=== PATIENT | female | born 1965 | race Caucasian/White ===

== ENCOUNTER 2023-10-10 06:53 | Outpatient (OUT) | payer BC, SELFPAY ==
--- NOTE | 2023-10-10 06:59 | MM_ITS ---
Patient Name: ESME LARSEN MR#: [id number] : 1965 Exam Date: 10/10/2023 Ordering Doctor: Non-Staff Physician RADIOLOGY REPORT PROCEDURE: MM TOMOSYNTHESIS SCREENING BI COMPARISON: MG MAMM SCREEN 3D ABELARDO CAD, 10/06/2022. MG MAMM SCREEN 3D ABELARDO CAD, 08/26/2021. INDICATIONS: Screening Calculator Name NCI Breast Cancer Risk Assessment Tool 5 Year Breast Cancer Risk 1.40% Lifetime Breast Cancer Risk 8.70% Personal Breast Cancer No Personal Ovarian Cancer No Treatments None Family Cancers Mother with lung cancer at age 72; Father with liver/colon cancer at age 56. LOCATION: [facility] BREAST COMPOSITION: The breasts are extremely dense, which lowers the sensitivity of mammography. FINDINGS: DIAGNOSTIC CATEGORY 1--NEGATIVE. NO CHANGE FROM COMPARISON ASSESSMENT. Scattered benign-appearing lymph nodes are present. RIGHT BREAST: No significant suspicious finding. LEFT BREAST: No significant suspicious finding. RECOMMENDATIONS: ROUTINE MAMMOGRAM AND CLINICAL EVALUATION IN 12 MONTHS. PLEASE NOTE: A NORMAL MAMMOGRAM DOES NOT EXCLUDE THE POSSIBILITY OF BREAST CANCER. A CLINICALLY SUSPICIOUS PALPABLE LUMP SHOULD BE BIOPSIED. Dictated by: Bryan Hebert MD on 10/10/2023 at 07:49 Approved by: Bryan Hebert MD on 10/10/2023 at 07:50
== END 2023-10-10 06:54 | disposition home or self-care (01) ==
LOC: MAMMO 06:54
PROVIDERS: PCP Family Medicine
DX: Z12.31 Encounter for screening mammogram for malignant neoplasm of breast (principal); Z80.1 Family history of malignant neoplasm of trachea, bronchus and lung; Z80.0 Family history of malignant neoplasm of digestive organs
CPT/HCPCS: 77063; 77067

== ENCOUNTER 2024-10-22 07:00 | Outpatient (OUT) | payer BC, SELFPAY ==
--- NOTE | 2024-10-22 07:02 | MM_ITS ---
Patient Name: ESME LARSEN MR#: [id number] : 1965 Exam Date: 10/22/2024 Ordering Doctor: MRS. KENYON COX NP RADIOLOGY REPORT PROCEDURE: MM TOMOSYNTHESIS SCREENING BI COMPARISON: MM TOMOSYNTHESIS SCREENING BI, 10/10/2023. MG MAMM SCREEN 3D ABELARDO CAD, 10/06/2022. MG MAMM SCREEN 3D ABELARDO CAD, 08/26/2021. MG MAMM ABELARDO SCRN W CAD DIG, 03/12/2008. INDICATIONS: screening for malignant neoplasm of breast Calculator Name [facility] Breast Cancer Risk Assessment Tool 5 Year Breast Cancer Risk 1.50% Lifetime Breast Cancer Risk 8.50% Personal Breast Cancer No Personal Ovarian Cancer No Treatments None Family Cancers Mother with lung cancer at age 72; Father with liver/colon cancer at age 56. LOCATION: [facility] BREAST COMPOSITION: The breasts are heterogeneously dense,which may obscure small masses. FINDINGS: RIGHT BREAST: No significant suspicious finding. LEFT BREAST: No significant suspicious finding. There is a benign-appearing calcification on the left. There is a similar focal asymmetry appeared DIAGNOSTIC CATEGORY 2--BENIGN FINDING: RECOMMENDATIONS: ROUTINE MAMMOGRAM AND CLINICAL EVALUATION IN 12 MONTHS. PLEASE NOTE: A NORMAL MAMMOGRAM DOES NOT EXCLUDE THE POSSIBILITY OF BREAST CANCER. A CLINICALLY SUSPICIOUS PALPABLE LUMP SHOULD BE BIOPSIED. Dictated by: Moreno Spence MD on 10/22/2024 at 08:09 Approved by: Moreno Spence MD on 10/22/2024 at 08:26
--- OUTSIDE RECORDS SUMMARY | 2024-10-22 07:02 | XMS_ITS | Clinical Summary ---
Author Organization [facility] Address [address] [place] [address] Care Team Providers Care Bull Driver Name Role Phone Artur Hdz DO Primary Care Provider [phone] Social History Tobacco Use Types Packs/Day Years Used Date Smoking Tobacco: Never Assessed Comments Unknown Sex and Gender Information Value Date Recorded Sex Assigned at Not on file Legal Sex Female 9:02 AM EDT Gender Identity Not on file Sexual Orientation Not on file Plan of Treatment Not on file Insurance [place] Care Teams Bull Driver Relationship Specialty Start Date End Date Artur Hdz DO [address] [place] [address] PCP - General Family Medicine 01/24/23
--- OUTSIDE RECORDS SUMMARY | 2024-10-22 07:02 | XMS_ITS | Clinical Summary ---
Author Organization [facility] Address [address] [place] [address] Phone Care Team Providers Care Latin Dance Instructor Name Role Phone Unavailable Primary Care Provider Unavailabl e Social History Tobacco Use Types Packs/Day Years Used Date Smoking Tobacco: Never Assessed Comments Unknown Sex and Gender Information Value Date Recorded Sex Assigned at Not on file Legal Sex Female 5:22 AM EST Gender Identity Not on file Sexual Orientation Not on file Plan of Treatment Not on file
--- OUTSIDE RECORDS SUMMARY | 2024-10-22 07:02 | XMS_ITS | Encounter Summary ---
Author Organization [facility] Address [address] [place] [address] Care Team Providers Care Laminating Machine Tender Name Role Phone Unavailable Primary Care Provider Unavailabl e Encounter Details Date Type Department Care Team (Late st Contact Info) Description 12/03/2023 Orders Only [facility] [address] [phone] Jennifer Griffin NP [address] [place] [address] Social History Tobacco Use Types Packs/Day Years Used Date Smoking Tobacco: Never Assessed Comments Unknown Sex and Gender Information Value Date Recorded Sex Assigned at Not on file Legal Sex Female 6:39 PM EDT Gender Identity Not on file Sexual Orientation Not on file documented as of this encounter Plan of Treatment Not on file documented as of this encounter Procedures Procedure Name Priority Date/Time Associated Diagnosis Comments MAMMO 3D,BILATERAL SCREENING MAMMOGRAM WITH TOMOSY Routine 10/10/2023 2:41 PM EDT documented in this encounter Results * MAMMO 3D,BILATERAL SCREENING MAMMOGRAM WITH TOMOSY (10/10/2023 2:41 PM EDT) Anatomical Region Laterality Modality Radiographic Laura ging Jennifer Griffin NP IMG XR PROCEDURES Final R esult documented in this encounter Visit Diagnoses Not on filedocumented in this encounter
--- OUTSIDE RECORDS SUMMARY | 2024-10-22 07:09 | XMS_ITS | CCD ---
Author Organization [facility] Care Team Providers Care Labor And Delivery Nurse Name Role Phone Bianca Villalobos Primary Care Physician KENYON COX Admitting Unavailable KENYON COX Attending Unavailable KADE, DR ANTONETTE Kumar Primary Care Unavailable HERNAN, DR DELFINO Basilio Consulting Unavailable KENYON COX Consulting Unavailable CHELSIE, BIANCA Basilio Admitting Unavailable KLMEERAK, BIANCA Basilio Attending Unavailable CHELSIE, BIANCA Basilio Attending Unavailable CHELSIE, BIANCA Basilio Attending Unavailable CHELSIE, BIANCA Basilio Referring Unavailable AVRILK, BIANCA Basilio Admitting Unavailable CHELSIE, BIANCA Basilio Attending Unavailable KLDESHAUN, BIANCA Basilio Referring Unavailable KLONK, BIANCA Basilio Admitting Unavailable MD Darion GARCÍA Consulting Unavailable BIANCA VILLALOBOS Attending Unavailable Darion GARCÍA Consulting Unavailable Darion GARCÍA Consulting Unavailable Allergies Allergy Classification Reported Allergen(s) Allergy Type Date of Onset Reaction(s) Facility (1 source) No Known Medication Allergies; Translations: [No Known Medication Allergies] Propensity to adverse reactions (disorder) [facility] Repository Medications Current Medications Medication Drug Class(es) Dates Sig (Normalized) Sig (Original) Centrum Women's oral tablet (4 sources) Start: 04-10-2019 Centrum Women's oral tablet 1 tab(s), Refill(s) 0 Start Date: 04/10/19 Status: Ordered Problems Problem Classification Problem Date Documented Date Episodic/Chronic Allergic reactions (4 sources) Contact dermatitis 12-07-2019 Episodic Cardiac dysrhythmias (4 sources) Tachyarrhythmia ; Translations: [Tachycardia, unspecified] Onset: 09-28-2022 Episodic Nonspecific chest pain (4 sources) Chest pain; Translations: [Other chest pain] Onset: 09-28-2022 Episodic Other screening for suspected conditions (not mental disorders or infectious disease) (4 sources) Encounter for screening mammogram for malignant neoplasm of breast; Translations: [ENC SCR MAMMO MALIG NEOPLASM BREAST] Onset: 10-06-2022 Episodic Residual codes; unclassified (1 source) Family history of malignant neoplasm of trachea, bronchus and lung; Translations: [FAM HX MALNAFISA NEOPLSM TRACH BRON LNG] Onset: 10-08-2022 Episodic Residual codes; unclassified (1 source) Family history of malignant neoplasm of digestive organs; Translations: [FAM HX MALIG NEOPLASM DIGESTIV ORGN] Onset: 10-08-2022 Episodic Unclassified (4 sources) Patient encounter status 09-15-2022 Results Test Name Value Interpretation Reference Range Facility Auth for Release of Medical Recordson 01-24-2023 Auth for Release of Medical Records [id number]#[id number]:127 Normal [facility] Holter Monitoron 12-11-2022 Holter Monitor [id number]#1.00CD:127 Normal [facility] Physician Referralon 023 Physician Referral [id number]#1.00CD:127 Normal [facility] Reminderson 11-23-2022 Reminders --- From: Radha Jiménez DO To: [facility] - Clinical; Sent: 11/21/2022 19:40:55 EDT Show up: 11/21/2022 19:41:00 EDT Subject: Ambulatory Reminder Due Date/Time: 11/22/2022 19:40:00 EDT have patient schedule appointment echo ordered slightly off think might have her see cardiology Results: Date Result Type Result Name 11/21/2022 15:45 RAD Echo Transthoracic Complete --- From: Tami Mixon ([facility] - Clinical) To: Radha Jiménez DO; Sent: 11/23/2022 09:18:43 EDT Show up: 11/23/2022 09:18:00 EDT Subject: RE: Ambulatory Reminder Dr. Jiménez, I could attempt to schedule this pt on your schedule for December 12, which is the Sunday in November. Is this too far out? There are no current open appointments showing in [employer] without things being set in stone currently. --- From: Radha Jiménez DO To: [facility] - Clinical; Sent: 11/23/2022 13:33:02 EDT Show up: 11/23/2022 13:32:00 EDT Subject: RE: Ambulatory Reminder yes that be fine it is stable mild. Noted. Please see other message regarding this. Thank you! [facility] Consent for Treatmenton Consent for Treatment [id number]:127 Normal [facility] Consent for Treatmenton Consent for Treatment [id number]#[id number]:127 Normal [facility] Family Medicine Office/Clini c Noteon 10-13-2022 Family Medicine Office/Clinic Note Chief Complaint chest tightness HPI Staff Cass is a 57 yo female who presents today to discuss getting a referral to see Cardio. Claims at times she notices tightness and heart racing when she lays down. Denies pain and SOB. States she does not feel anything during the day, just when laying down. Has noticed this in the last 3-4 weeks. Also had labs done yesterday she wants to review. History of Present Illness Cass Ramon presents today for an evaluation. Cass Ramon explains that she had blood work done yesterday for her wellness visit. Her glucose was 89 mg/dL. Her kidney function and electrolytes were good, and her LDL was 133 mg/dL. Cass explains that she has been experiencing intermittent fluttering in her chest when she lays down at night, which has been ongoing for 3 to 4 weeks. She explains that it is not every night, but it varies, and it wakes her up at night. She describes it as an anxious feeling. Sometimes it feels like there is pressure , but she denies pain. She walks every day. She denies shortness of breath before, during, or after, and it occurs in the evening. She tries not to sleep on her side with her heart. If she does, she makes sure her shoulders are more straight. She denies edema in her legs. She drinks coffee. She used to drink 1 cup at 8:00 PM or 1 cup after dinner. She has had no issues sleeping her whole life. If she exercises that day, she sleeps better. Review of Systems ROS - Clinical Support GI Symptoms: None Cardiopulmonary Symptoms: Chest pain/pressure at rest, Palpitations General Symptoms: None Genitourinary Symptoms: None Neuromuscular Symptoms: None Pain Symptoms: No Skin Symptoms: None PHQ Score Initial Depression Screen Score: 0 see above HPI Physical Exam Vitals & Measurements T: 36.4 ?C(Temporal Artery) HR: 74(Peripheral) BP: 118/68 SpO2: 98% HT: 69 in HT: 175 cm WT: 101 kg WT: 222.2 lb BMI: 32.98 General: Well developed, _in no acute distress Lungs: Normal respiratory effort and clear to auscultation Cardio: Regular rate and rhythm, normal S1 and S2, no murmur, no rub Extremity: No clubbing, cyanosis, edema, or deformity, with normal ROM in both upper and lower bilateral extremities Neurologic: Grossly normal Mental Status: Alert and oriented x3. Normal mood and affect Assessment/Plan 1. Tachycardia (R00.0: Tachycardia, unspecified) I will order an echocardiogram and a Holter monitor. ER for acute changes in condition/chest pain. 2. Chest pressure (R07.89: Other chest pain) see above- discussed possible anxiety component, rule out cardiac. BMI 32.0-32.9,adult (Z68.32: Body mass index [BMI] 32.0-32.9, adult) Nonsmoker (Z78.9: Other specified health status) Obesity due to excess calories (E66.09: Other obesity due to excess calories) not dictated by provider Documentation services were performed after patient or guardian consented to allow [facility] [employer] to record this visit. BRITTNEE renewals specialist and provider reviewed before signing. BRITTNEE: Annalisa Tre Follow-up No qualifying data available Problem List/Past Medical History Ongoing Chest pressure Contact dermatitis Tachycardia Wellness examination Historical No qualifying data Procedure/Surgical History Colonoscopy (09/14/2017), Basal cell carcinoma, Dental. Medications Centrum Women's oral tablet, 1 tab(s) Allergies No Known Medication Allergies Social History Alcohol - Denies Alcohol Use, 04/10/2019 Household alcohol concerns: No., 09/28/2022 Substance Abuse - Denies Substance Abuse, 04/10/2019 Household substance abuse concerns: No., 09/28/2022 Tobacco - Denies Tobacco Use, 04/10/2019 Never (less than 100 in lifetime) Tobacco Use:. Never Smokeless Tobacco Use:. Household tobacco concerns: No., 09/28/2022 Family History Primary malignant neoplasm of colon: Father. Primary malignant neoplasm of female breast: Mother. Immunizations Vaccine Date Status Comments SARS-CoV-2 (COVID-19) mRNA BNT-162b2 vax 10/02/2020 Given Prophylaxis SARS-CoV-2 (COVID-19) mRNA BNT-162b2 vax 09/11/2020 Given Prophylaxis [facility] Comment on above: Result Comment: Elec tronically Signed By: Bianca Villalobos NP\.br\Date and Time Signed: 10/13/22 14:20 EDT\.br\Electronically Co-Signed By: Annalisa Toledo\.br\Date and Time Co-Signed: 09/28/22 12:55 EDT MG MAMM SCREEN 3D ABELARDO CADon 10-06-2022 MG MAMM SCREEN 3D ABELARDO CAD Patient: CASS RAMON Exam Date: 10/06/2022 : 1965 Gender:F Ordering : MRS. KENYON COX PHOTOLITHOGRAPHER Admission #: [id number] Family : Order #: [id number] CLICK HERE TO VIEW EXAM RADIOLOGY REPORT PROCEDURE: MAMMOGRAM SCREENING 3D BILATERAL CAD COMPARISON: MG MAMM LT DIAG FU, 08/27/2019. MG MAMM SCREEN ABELARDO W CAD, 07/10/2019. MG MAMM ABELARDO SCRN W CAD DIG, 03/12/2008. MG MAMM SCREEN 3D ABELARDO CAD, 08/26/2021. INDICATIONS: Screening mammography Calculator Name NCI Breast Cancer Risk Assessment Tool 5 Year Breast Cancer Risk 1.40% Lifetime Breast Cancer Risk 8.90% Personal Breast Cancer No Personal Ovarian Cancer No Treatments None Family Cancers Mother with lung cancer at age 72; Father with liver/colon cancer at age 56. LOCATION: [facility] BREAST COMPOSITION: Extremely dense, which lowers the sensitivity of mammography. FINDINGS: DIAGNOSTIC CATEGORY 1--NEGATIVE. RIGHT BREAST: No significant suspicious finding. No significant change has occurred. LEFT BREAST: No significant suspicious finding. No significant change has occurred. RECOMMENDATIONS: ROUTINE MAMMOGRAM AND CLINICAL EVALUATION IN 12 MONTHS. PLEASE NOTE: A NORMAL MAMMOGRAM DOES NOT EXCLUDE THE POSSIBILITY OF BREAST CANCER. A CLINICALLY SUSPICIOUS PALPABLE LUMP SHOULD BE BIOPSIED. Dictated by: Delfino Fox M.D. on 10/06/2022 at 09:00 Approved by: Delfino Fox M.D. on 10/06/2022 at 09:04 Normal [facility] Coding Summary.on 10-02-2022 Coding Summary. CD:[id number] 0bWw+PGhlYWQ+PE1FV CTkK66zsVRdgB9iC8Z MTElOSywgQVBQTElOS xWehqWeGL7aySJeJYC u IC8+QD2cOLCiXtbxxL Iiy8X0pIT9K39hqs1f KCjlqDC2DFRrHzSkjd aql5xbiDl3HAvxOzcb OyBt WNEppI22MBP1eO49Vq 32qLQpaXWba2ucfSx1 EvPjKYOlZZT1kQchCW rcm9CpKWNfJ48fnBCa c2U6 IGNvbGxhcHNlOyBlbX P9lM5zCKxochiwz6zm owlcWku6rb26wZCds8 U2sZO8T7XkwyY3ZRIk bGQg GdwypMVGkO9ffbkeb1 xvcjogIzAwMDAwMDt0 UXo0PNGmqEsiJyUxUP 56GNS9DTEhyxFzG7Uu LWFs qJljUhR6m3C9Tw7VH8 QPLtuvA8VSLSQWGChe dGQ+AM52op93Z2MwSn luCrk0LRCcNJE3bKK3 aD0n WCUuUSvkw3W6wLN5K2 DhfjSeut0os8bfPFYm VGpwA72yrFNfx0I7KA CnxJV1OPOjeKbcXfTf aG93 Oyc+VBDrwNsls0NzId sfh0jut8aahXg2Glbj VXXsztWqkNbjGWM2o9 DiRi6yHMGgzQD9yVN2 aD0i YpWbPjV7APceS026Td AlgSAvQlquU44qC1Es dXA+DBKiTtr0EJBdkI wsKA0iM7LoTMDgfjtx bGVm fPsxGK1uWKIgklyzXN KsrJ4hPKDzB9h2HlOe BjR6LSovK7ZeCRJteb lwEh21sM7fDkHqQzJ1 MGlu P2VqezV3XIVeiWIxIG onGID5K45xl9G6JUCc YWPoVEM9aCI9kP4gbB lnbjogbGVmdDsgdmVy dGlj OZkzXCqtX353UZUulI snPkNvZGluZyBEYXRl OiAgMDUvMDgvMjAyMz wvdGQ+YLHfMLW6eXwp PSAn gNDyHKywJr8byWlbzF ayOS7cSBTohgxhJGMe rW0wQZOkzADmkVerTL 4bOUIkyjvyk058HfHz MHB0 VCXrbJHuS7YvkF4cNw XnLBAfLHWnT0SnxECe DJgyA550XRgyJxU1SM HfmyCiH7RdVXFleJie OiB0 p8Z9Uy2Zw8SshmasY8 RhdHVzOiAgRmluYWw8 T1RtYzapdVA+PC90YW QxUV60BGc7GTE8bMdo PSdi NOZfI1BanM4iAwCsJU RkZGRkOyc+PHRhYmxl IHdpZHRoPScxMDAlJy JssMhjDD8vWv3rHEKu LWNv cGqrgSPgQzCem5tjVP CoISmsSN4mmIhlO7Sg iUA4KPWqh0z5Oj00L1 1rK3XtcSZ+PGNvbCB3 aWR0 cD1oMiBjVyZ9HVuaR1 14UyUtyYRbHslwt3gn x6gpiBj6XkA7EPVjhs PkoDtsFGD2s6WvFi46 Y29s IHdpZHRoPSIxNSUiIH MwkYrttq4naL9iWr2+ KMTsrUD2qXV7bD4zTf NpXqV4BMdkO924DxAd cCIv Msktc0lzg7unlUq9Oy IwJSIgdmFsaWduPSJ0 a4KnJn57C9GuqFwuk1 SeLvz1xq68nOVsu0J8 bGU9 L6ObHMTlqfqpkXYfjQ yePN8oDDCwcufcXVOg gE4zJWScU2a0XsSfFv X7LMeaA1OnzlI9BAGc bGQg KCUryVCOsY3blnhzb1 xvcjogIzAwMDAwMDt0 OHe4CAQneCwrBpSoXL E6CcR3URM7ySIwdL9a bGln pobnsV7mIvo+UGF0aW MnrXIQDD4pJsvdcFR+ EPDaTKM5zDgxKUmhHG UtwE1kPGYeN5n6XnUg LjA1 GUcfV6FbltL6WVJibT XnPNWloSRJxF7xhsol u1azmcybQcZuTQTaAH i2CVr7HSXffZxtAnTq ZWZ0 BkA5DCS6cKMipC0biM ftqubvmD2qDvl+Qmly lOinYJJ2ENl2X3HlAi q1XEFtfBeoIA3phUJv ZGlu Wv8cvZfivHkxUK6tJD Zlgiroy841SiVig3if XTBazBEzDAwfEQD6N1 1pt6W5WGFrBAPbWGO4 dGV4 wH9ngUpttacycIAuvF sgdmVydGljYWwtYWxp D434ZWWftYbjLnUpQK u1S2AbDwt9PYOfzPgu ZT0n bSUsBNkvUn3aqWbgxF ayHY4eSONxkxkib228 GcEez8rrDUMroZIuQF iqSVR8Z05zg0A3AIYr MDAw PPB9oRG0dZ7yqObfox ogbGVmdDsgdmVydGlj VLwrQDuvS651ZLHbcS dkXjSkbZh9R6XnYyb4 ZCBz oUwoVN9luWUtWBweLs 7hcKzskFpoVN8iUFPn ukkcx516ClHiv6gvOE UzoIMuYKolDUG1M19z b3I6 FPXwTPCeESA3zMN9jW 1hbGlnbjogbGVmdDsg dmVydGljYWwtYWxpZ2 46IHRvcDsnPlBhdGll bnQg RAisTAz0F5MjMhuhvL I+LY30SAQkWU67yBJh eYEyc9rwnQj4MuOmPQ LoJLO1rBeqWMork9Lm ZXIt V76bjKBqf3O7CJOmvD nhdQDdFsAhfUZ1lX4b EEcfwvcrj1dsybmyJr ycs9jqzv68cF54E45n IHdp ZHRoPSIzMCUiIHZhbG gvkr4mhM5bBe9+PGNv sHF1gUP8yJ0cVYAoQx U5MZibO272JgFamSRm Pjxj g2wbq0twqWv4KvA0UV GrclRqtIgdJPG6f1Ul Kh26U04tBGwkREAaNN HsVBMuCSWxwWsggg5q dG9w Ii8+OMEdcRU8gZE3vI 5pLzGaQoS8JZtxV721 TyJxcBSoFqhuU00lP8 JvdXA+FCLcVuz6FJDp dHls IH3ucWYoWGtsOh9iQY M0JgOjFyCmDZalU2Gq SNYvvlodofdinDX4GT WoSPSvuT46En6tiTec MTBw cBAHvM3qsltnx1eddm jgMvFnBVSwPVa4PAx9 EKVvdBeoIrCqRFO0Hn T7ZPT1vAVksT3hiSmn bjog jH5nH4RlSNYcokohLb 46bN1dKrYvHtB4CZml Oyc+SFVMTCwgTElTQS XQIE19TH12dGQuv3Z6 bGU9 M9DwEKTdsserjwhxeK C5DVFaYNCqoG00yNDe GUibPu7td3K0r546AM DjJXQjkS07Ku7ipLuj MTBw zPWEtH6yjpwtb7vdwv roOiEnKDEkBPe9LNr0 AQUtjJohFzIsRCW1Rj N0VZY3qBAubU5ukApd bjog wH0aMuf+MDQvMjYvMT a3BbfzvGR+PHRkIHN0 rJllGJwtKVIvnD4wLX GhQ6r5TgKbXrP8ADvf O3Bh DREvmkscRi50fO7wJh PgNsB3KRilW3FkvlC1 NRPxbTRmQKmkYEZ3Z6 9nx6W8VEWwUKAcEUS9 dGV4 tA0jdAsbvpffzCPrhZ sgdmVydGljYWwtYWxp I958UZGdoErgYoR4FT bvIFOpKW96CS14hWYv c3R5 eIF3R9UxJKTnunbkro xdnTY7QCWpBPZiiD18 nBIjGBbhEu2ml8N4x8 85BHXsAEBshE91Lr2m dDog ANBshWCIyL0gypsbv8 xvcjogIzAwMDAwMDt0 SYt7GDFvlRoqVaZqEV M0PdM0LOA5fWKasN8u bGln lfgpkX8sYoa+RmVtYW vnAU06DZ70gDRrr2A3 rLX0C3YwTKVgxfmype ofkKG6UFZjCJQjaK87 cGFk NDnkCi2et1B3a380LT FcXBYxnM92Qb8llSen KDUfnAUSyF5hiuwcn3 xvcjogIzAwMDAwMDt0 ZXh0 MXBgtVthWdWaNXR6Ib O6MLC2cQYdmL4zrBed zrigzV1nGjp+T3V0cG O1rMBtdZfhdIT+PC90 cj48 B4LcRkbtCph8VRWcCL D9aJT1pX4uWTAdIUso o9B5xBK7B1AxblXtlx 8us7xiRGVuNPzxT89r bGFw m3J8SZEipEH4VMUuyH nuDsRmqY24Fyn+PGNv hOrrv9OyYxpyi4tam8 ltuJl6DpGzYXQnevSe aWdu VJM6d4UnZv60N12dVW dpZHRoPSIzMCUiIHZh mAejpb3gnT2nGf2+PG QxwQL3hGP4mN1gZmZy IiB2 BWzgP186QkLekOWjTx nhu1xvl0zuzWz8UnXm OEKnleFaoHyoCVT8q6 FdXs54F1OwxCirb4Ca Pjx0 hd39cKEtl0A7lQX5R5 BhZGRpbmctbGVmdDog QE4oKSZzzyxpFMXcxO 7aYKJyB2o3OfJiGnH6 MGlu F4UwjcV2UAJqcKUeEQ WqwHRRnD9ssqofg7mt wndhAzCgZDHhKXa7DU s4BUBbhCzqAmJzJGV0 OyB2 QFX6aQBahB2ldLkphd mezT6cCir+HFl0h7hd hFQxUR8tlVU5VC28SA 05bUHiu1S9cKC4J3Ms ZGRp lzskfsbsaYI7LQRgLJ IjtY92Eo3qrZpzDk6o GPQtTNT8YPNynFRpX9 RzkS9pGrVmSHGqACGu O3Rl fDJzGHxaD042OFhqXn I6ZDSaxpPiO4NhVNWh qXyzTfE2p9W9Mr1IYJ 02OX69PH58vFLuf1I2 bGU9 N6JeYSGktodipsbcjJ N3USCiFBKurP02Al7r hTsyYo8rQBYuXUP2MY EvpLVdM5WbdR1xDuBx MDAw ZAGhC1GagDBlVCbdV7 03KIlnTdG5DOHcclUs O3ZfNKOdcAdsWkF5d3 O9Yb7LJk39PU89DO48 dGQg p0T0nNK5T8AuSXNfpx uvvfyoaKN7HJFyLNHi wQ46Ud2plFkiTz4pLH SmVFK3LZVxuYZxO7Ha bG9y QyXfTFKbNAWnS6XsjU FnWQanE646NIzlLhS9 KTSkbrTvF9ZfEBUbeZ aiTaR9s5Z6Ie1XYUzf cjo8 F5NsRhzekPI+PC90YW UqWZ97pLYglDIew5ck cEn6GaZrNAQhSHZ6rZ owVMgqq7VxPZCdV21p bGFw y0J3YPWa (more content not included)... Normal [facility] Ambulatory Visit Summaryon 0 09-28-2022 Ambulatory Visit Summary CASS RAMON :1965 Visit Date:09/28/2022 Ambulatory Visit Instructions Your Diagnosis Tachycardia Chest pressure BMI 32.0-32.9,adult Nonsmoker Obesity due to excess calories Your Care Team Attending Physician - Bianca Villalobos NP Primary Care Physician - Bianca Villalobos NP This Is Your Medications List multivitamin with minerals (Centrum Women's oral tablet) Procedures Performed Basal cell carcinoma, Dental. Discharge Vitals Temperature (Temporal Artery) 36.4 ?C Heart Rate (Peripheral) 74 Blood Pressure 118/68 Height 175 cm Height 69 in Weight 101 kg Weight 222.2 lb BMI 32.98 What to do next You Need to Complete the Following Echo Transthoracic Complete, 09/28/22, Routine, Order for future visit, Transport Mode: Ambulatory, Reason: Chest pain, Chest pressure, Leandro pp_set_radiology_s ubspecialty, [facility] Medications What How Much When Instructions Unchanged multivitamin with minerals (Centrum Women's oral tablet) 1 Tablets Allergies No Known Medication Allergies Problems Ongoing - Any problem that you are currently receiving treatment for. Chest pressure Contact dermatitis Tachycardia Wellness examination Normal [facility] Pre-Certification Formon Pre-Certification Form [id number]#[id number]:127 Normal [facility] BMPon 09-27-2022 Anion gap [Moles/Vol] 10 mmol/L Normal 6-16 [facility] Comment on above: Performed By: #### 1 [id number], [id number] ####[facility] [address] [place] [address] Calcium [Mass/Vol] 8.9 mg/dL Normal 8.9-11.1 [facility] Comment on above: Performed By: #### 1 [id number], [id number], [id number] ####[facility] [address] [place] [address] Chloride [Moles/Vol] 106 mmol/L Normal 101-111 [facility] Comment on above: Performed By: #### 1 [id number], [id number], [id number] ####[facility] [address] [place] [address] CO2 [Moles/Vol] 26 mmol/L Normal 21-31 [facility] Comment on above: Performed By: #### 1 [id number], [id number], 2633523 ####[facility] [address] [place] [address] Creatinine [Mass/Vol] 0.9 mg/dL Normal 0.5-1.3 [facility] Comment on above: Performed By: #### 1 [id number], 1547941, 3580487 ####[facility] [address] [place] [address] Glucose [Mass/Vol] 89 mg/dL Normal 55-199 [facility] Comment on above: Result Comment: If t his glucose result represents a fasting glucose, interpretation should refer to the following reference range: 55-99 mg/dL Performed By: #### 1 [id number], [id number], [id number] ####[facility] [address] [place] [address] Potassium [Moles/Vol] 4.1 mmol/L Normal 3.5-5.3 [facility] Comment on above: Performed By: #### 1 [id number], 1382464, 6655829 ####[facility] [address] [place] [address] Sodium [Moles/Vol] 138 mmol/L Normal 135-145 [facility] Comment on above: Performed By: #### 1 [id number], 3022860, 6998331 ####[facility] [address] [place] [id number] Urea nitrogen [Mass/Vol] 17 mg/dL Normal 5-21 [facility] Comment on above: Performed By: #### 1 [id number], 7744614, 2758914 ####[place] [id number] Urea nitrogen/Creatinine [Mass ratio] 19 No Units Normal 10-20 [facility] Comment on above: Performed By: #### 1 [id number], 8867507, [id number] ####[facility] [address] [place] [address] Consent for Treatmenton 050 Consent for Treatment [id number]:127 Normal [facility] Lipid Panelon 09-27-2022 Cholesterol [Mass/Vol] 198 mg/dL Normal 120-200 [facility] Comment on above: Performed By: #### 1 [id number], 8203969, [id number] ####[facility] [address] [place] [address] Cholesterol in HDL [Mass/Vol] 52 mg/dL Invalid Interpretation Code [facility] Comment on above: Result Comment: HDL > or equal to 60 mg/dL: Low cardiovascular risk HDL < 40 mg/dL : High cardiovascular risk Performed By: #### 1 [id number], 5098475, 6336369 ####[facility] [address] [place] [address] Cholesterol in LDL [Mass/Vol] 133 mg/dL High <=129 [facility] Comment on above: Performed By: #### 1 [id number], 9702095, 7587852 ####[facility] [address] [place] [address] Cholesterol in VLDL [Mass/Vol] 13 mg/dL Normal 7-40 [facility] Comment on above: Performed By: #### 1 [id number], 8672389, 7196513 ####[facility] [address] [place] [address] Triglyceride [Mass/Vol] 66 mg/dL Normal <=149 [facility] Comment on above: Performed By: #### 1 [id number], 7880250, 4823653 ####[facility] [address] [place] [address] eGFRon 09-27-2022 GFR/1.73 sq M.predicted among non-blacks MDRD (S/P/Bld) [Vol rate/Area] 75 mL/min/1.73 m2 Normal >=59 [facility] Comment on above: Order Comment: Order added by Discern Expert. Result Comment: Sales Development Director al kidney disease could be indicated at eGFR's of less than 60 mL/min/1.73m2. Kidney failure is indicated at less than 15 mL/min/1.73m2. Performed By: #### 1 [id number], 7211679, 8438826 ####[facility] [address] [place] [address] Family Medicine Office/Clini c Noteon 09-21-2022 Family Medicine Office/Clinic Note Chief Complaint wellness HPI Staff Cass is a 56 yo female who presents today for wellness visit. Has not been seen in over a year and would like to discuss getting prev blood work. Has no further questions. Does see HR ASSOCIATE and claims she handles her [facility] through [facility]. Last PAP was in July 2021. Colonoscopy was in 2018. History of Present Illness Cass Wilkinson is a 56-year-old female who presents today for a wellness and preventative blood work. She has no known allergies. She is up to date on her Pap smear and colonoscopy. She takes a multivitamin and calcium daily. Review of Systems ROS - Clinical Support GI Symptoms: None Cardiopulmonary Symptoms: None General Symptoms: None Genitourinary Symptoms: None Pain Symptoms: No Skin Symptoms: None PHQ Score Initial Depression Screen Score: 0 Constitutional: No fever, no chills, no sweats, no fatigue Skin: No discoloration, no rash, no lesions, no cyanosis. ENMT: No ear pain, no sore throat, no congestion, no vision change. Respiratory: No shortness of breath, no cough, no orthopnea, no wheezing. Cardiovascular: No chest pain, no palpitations, no edema. Gastrointestinal: No nausea, no vomiting, no diarrhea, no constipation no GI bleeding. Genitourinary: No dysuria, no hematuria, no discharge, no pain. Musculoskeletal: No back pain, no trauma, no change in ROM, no stiffness Neurologic: No headache, no dizziness, no numbness, no weakness. Psychiatric: No sleeping problems, no irritability, no mood swings/depression. Heme/Lymph: No bleeding tendency, no bruising tendency, no petechiae, no swelling Allergy/Immunologi c: No food allergies, no recurrent infections, no impaired immunity. Physical Exam Vitals & Measurements T: 36.7 ?C(Temporal Artery) HR: 70(Peripheral) BP: 124/76 SpO2: 97% HT: 69 in HT: 175 cm WT: 101 kg WT: 222.2 lb BMI: 32.98 General: Well-developed, well nourished, patient here in no acute distress Head: Normocephalic/atra umatic Eyes: PERRLA and EOM intact. Conjunctivae and sclerae normal. No drainage. Ears: No deformity or lesions to external ears. Canals and TMs appear normal bilaterally. TMs intact with normal light reflex, not inflamed and without effusions. Hearing grossly normal to conversational speech Nose: No deformity, discharge, inflammation or lesions Mouth: Mucous membranes moist. Normal oropharynx and posterior pharynx without lesions, edema, erythema, or exudates. Tongue normal Neck: Neck supple. No masses or palpable cervical nodes. Trachea midline. Thyroid without nodules, masses, tenderness, or enlargement Lungs: Normal respiratory effort, no distress. Lungs clear to auscultation anteriorly and posteriorly Cardio: Regular rate and rhythm, normal S1 and S2, no murmurs or rubs. Pulses: Normal capillary refill Abdomen: BSP, soft, nondistended, nontender, no masses or organomegaly felt Musculoskeletal: No deformity or scoliosis noted. Normal ROM. Joints normal. No erythema, edema, effusion, or ecchymosis Extremity: No clubbing, cyanosis, edema, or deformity. Normal ROM in both upper and lower extremities bilaterally Neurologic: Grossly normal Skin: No rashes, ulcerations, or suspicious lesion Lymph Nodes: No cervical adenopathy, nodes normal Mental Status: Alert and oriented x3, normal mood and affect. Normal conversation and eye contact Assessment/Plan 1. Wellness examination (Z00.00: Encounter for general adult medical examination without abnormal findings) The patient is doing well overall. She is up to date on her Pap smear. She is due for a colonoscopy in 10 years. BMP and Lipid ordered. No further concerns. Adult BMI 32.0-32.9 kg/sq m (Z68.32: Body mass index [BMI] 32.0-32.9, adult) Nonsmoker (Z78.9: Other specified health status) Obesity due to excess calories (E66.09: Other obesity due to excess calories) Documentation services were performed after patient or guardian consented to allow [employer] to record this visit. BRITTNEE renewals specialist and provider reviewed before signing. BRITTNEE: Cindi Cabrera Follow-up No qualifying data available Problem List/Past Medical History Ongoing Contact dermatitis Wellness examination Historical No qualifying data Procedure/Surgical History Colonoscopy (09/14/2017), Basal cell carcinoma, Dental. Medications Centrum Women's oral tablet, 1 tab(s) Allergies No Known Medication Allergies Social History Alcohol - Denies Alcohol Use, 04/10/2019 Household alcohol concerns: No., 09/15/2022 Substance Abuse - Denies Substance Abuse, 04/10/2019 Household substance abuse concerns: No., 09/15/2022 Tobacco - Denies Tobacco Use, 04/10/2019 Never (less than 100 in lifetime) Tobacco Use:. Never Smokeless Tobacco Use:. Household tobacco concerns: No., 09/15/2022 Family History Primary malignant neoplasm of colon: Father. Primary malignant neoplasm of female breast: Mother. Immunizations Vaccine Date Status Comments SARS-Co (more content not included)... Normal [facility] Comment on above: Result Comment: Elec tronically Signed By: Bianca Villalobos NP\.br\Date and Time Signed: 09/21/22 10:20 EDT\.br\Electronically Co-Signed By: Cindi Cabrera V\.br\Date and Time Co-Signed: 09/15/22 12:52 EDT Ambulatory Visit Summaryon 0 09-15-2022 Ambulatory Visit Summary CASS RAMON :1965 Visit Date:09/15/2022 Ambulatory Visit Instructions Your Diagnosis Wellness examination Adult BMI 32.0-32.9 kg/sq m Nonsmoker Obesity due to excess calories Your Care Team Attending Physician - Bianca Villalobos NP Primary Care Physician - Bianca Villalobos NP This Is Your Medications List multivitamin with minerals (Centrum Women's oral tablet) Procedures Performed Colonoscopy (09/14/2017), Basal cell carcinoma, Dental. Discharge Vitals Temperature (Temporal Artery) 36.7 ?C Heart Rate (Peripheral) 70 Blood Pressure 124/76 Height 175 cm Height 69 in Weight 101 kg Weight 222.2 lb BMI 32.98 What to do next You Need to Complete the Following Basic Metabolic Panel, Blood, Routine collect, 09/15/22, Order for future visit, Lab Collect, Wellness examination, Print Label By Order Location Lipid Panel, Blood, Routine collect, 09/15/22, Order for future visit, Lab Collect, Wellness examination, Print Label By Order Location Medications What How Much When Instructions Unchanged multivitamin with minerals (Centrum Women's oral tablet) 1 Tablets Allergies No Known Medication Allergies Problems Ongoing - Any problem that you are currently receiving treatment for. Contact dermatitis Wellness examination Normal [facility] Dermatopathologyon 1 Dermatopathology [facility] Dermatopathology Laboratory [address] [place] [id number] DERMATOPATHOLOGY REPORT Name:RAMON CASS [facility]. Rec #. [id number] Location: [facility] Date of Procedure: 08/18/2020 Race: Date Received: 08/20/2020 /Sex: 1965 (Age: 54) / F Date Reported: 08/23/2020 Other: Submitting Physician:DONALD MCKEON PA-C FINAL DIAGNOSIS A. SKIN, R FOREHEAD, BIOPSY: PLEOMORPHIC BASAL CELL CARCINOMA, NODULAR GROWTH PATTERN, PRESENT ON THE DEEP MARGIN. B. SKIN, R CHEEK, BIOPSY: BASAL CELL CARCINOMA, SUPERFICIAL GROWTH PATTERN, PRESENT ON THE DEEP MARGIN. C. SKIN, R JAWLINE, BIOPSY: BASAL CELL CARCINOMA, NODULAR GROWTH PATTERN, PRESENT ON THE DEEP AND PERIPHERAL MARGIN. Electronically Signed Out by ALFRED VANEGAS M.D. Electronically Signed Out By ALFRED VANEGAS MD/[facility] By the signature on this report, the individual or group listed as making the Final Interpretation/Caryn gnosis certifies that they have reviewed this case. Clinical History: A: BCC. 0.8 x 0.6 cm. Biopsy. B: BCC. 1.0 x 0.6 cm. Biopsy. C: BCC. 0.5 x 0.4 cm. Biopsy. Specimens Submitted As: A: SKIN, R FOREHEAD B: SKIN, R CHEEK C: SKIN, R JAWLINE Gross Description: A: Received in formalin is a aguilar piece of skin measuring [id number]. The specimen is inked and embedded in toto. B: Received in formalin is a aguilar piece of skin measuring [id number]. The specimen is inked and embedded in toto. C: Received in formalin is one aguilar-brown piece of skin measuring [id number]. The specimen is inked and embedded in toto. dcp/08/20/2020 Microscopic Description: A. Microscopic analysis shows a discrete nodule of tumor that is associated with the epidermis. The carcinoma is composed of bland basaloid keratinocytes with peripheral palisaded arrangement of nuclei. B. Microscopic analysis shows multifocal buds and irregular proliferations of bland basaloid keratinocytes with palisaded arrangement of peripheral nuclei arising from epidermis. Mucinous stroma separates the carcinoma buds from dermis. Skip areas are present, where normal epidermis separates focal areas of carcinoma. C. Microscopic analysis shows a discrete nodule of tumor that is associated with the epidermis. The carcinoma is composed of bland basaloid keratinocytes with peripheral palisaded arrangement of nuclei. Normal [facility] Comment on above: Performed By: #### D #### Dermatopathology Vital Signs Date Time Vital Sign Value Performing Clinician Toan edouard 09-28-2022 09:26-0400 Blood Pressure Location Bianca Klonk [facility] 09-28-2022 09:26-0400 Body temperature 97.52 [degF] Bianca Klonk [facility] 09-28-2022 09:26-0400 Diastolic blood pressure 68 mm[Hg] Bianca Klonk [facility] 09-28-2022 09:26-0400 Heart rate 74 /min Bianca Klonk [facility] 09-28-2022 09:26-0400 SaO2% (BldA) [Mass fraction] 98 % Bianca Klonk [facility] 09-28-2022 09:26-0400 Systolic blood pressure 118 mm[Hg] Bianca Klonk [facility] 09-15-2022 10:46-0400 Blood Pressure Location Bianca Klonk [facility] 09-15-2022 10:46-0400 Body temperature 98.06 [degF] Bianca Klonk [facility] 09-15-2022 10:46-0400 Diastolic blood pressure 76 mm[Hg] Bianca Klonk [facility] 09-15-2022 10:46-0400 Heart rate 70 /min Bianca Klonk [facility] 09-15-2022 10:46-0400 SaO2% (BldA) [Mass fraction] 97 % Bianca Klonk [facility] 09-15-2022 10:46-6040 Systolic blood pressure 124 mm[Hg] Bianca Brandononk [facility] Encounters Encounter Date Encounter Type Care Provider Facility Start: 11-02-2022 End: 11-03-2022 ambulatory BIANCA R KLONK Facility:[facility] Start: 11-02-2022 End: 11-02-2022 Patient encounter procedure Bianca R Aleksandronk [facility] Start: 10-31-2022 End: 11-01-2022 ambulatory BIANCA R ALEKSANDRONK Facility:[facility] Start: 10-31-2022 End: 10-31-2022 Patient encounter procedure Bianca R Aleksandronk [facility] Start: 10-06-2022 End: 10-07-2022 ambulatory KENYON COX Facility: Start: 09-28-2022 End: 09-29-2022 ambulatory BIANCA R KLONK Facility:[facility] Start: 09-28-2022 End: 09-28-2022 Patient encounter procedure Bianca R Aleksandronk [facility] Start: 09-27-2022 End: 09-28-2022 ambulatory BIANCA R KLONK Facility:[facility] Start: 09-15-2022 End: 09-16-2022 ambulatory BIANCA R KLONK Facility:[facility] Start: 09-15-2022 End: 09-15-2022 Patient encounter procedure Bianca R Klonk [facility] Start: 09-15-2022 End: 09-15-2022 Well adult monitoring check done Bianca R Aleksandronk [facility] Procedures Date Procedure Procedure Detail Performing Clinician Start: 09-14-2017 Colonoscopy Bianca campuzano Basal cell carcinoma (morphologic abnormality) Bianca Villalobos Dental Bianca Villalobos Immunizations Immunization Date Immunization Notes Care Provider Kalie bryant 10-02-2020 COVID-19, mRNA, LNP- S, PF, 30 mcg/0.3 mL dose Bianca Brandononk [facility] Comment on above: Reason for Medicatio n: Prophylaxis 09-11-2020 COVID-19, mRNA, LNP- S, PF, 30 mcg/0.3 mL dose Bianca Brandononk [facility] Comment on above: Reason for Medicatio n: Prophylaxis Payers Date Payer Category Payer Unknown [id number] 1965 Unknown [id number] 1965 Unknown [id number] 1965 Unknown [id number] [id number] [id number] 1965 Unknown [id number] 2.16.8 [id number] 1965 Unknown [id number] [id number] 1958 Unknown [id number] Social History Date Type Detail Facility Start: 09-15-2022 End: 09-28-2022 Tobacco smoking status Never smoked tobacco (finding) [facility] Tobacco smoking status Never [facility] Sex Assigned At Female [facility] Functional Status Date Assessment Result Facility 09-28-2022 Functional Status N/A [facility] 09-15-2022 Functional Status N/A [facility] [place] Clinical Note 12-07-2022 Note Date & Type Note Facility 12-07-2022 Note PROCEDURE: 48-hour H olter monitor REFERRING PHYSICIAN: ANNALEE Weiss INDICATIONS: Tachycardia. PROCEDURE DETAILS: The patient was recorded for 48 hours 0 minutes capturing a total of 197,529 beats which is an average heart rate of 72 beats per minute, minimum heart rate of 48 beats per minute, maximum heart rate of 149 beats per minute. There were 97 episodes of tachycardia for 8.23% of the time. Nighttime average was 70 beats per minute, daytime average was 75 beats per minute. There were 8 ventricular ectopic beats and 82 supraventricular ectopic beats with one episode of 4 beats of supraventricular ectopy. Selected strips were benign appearing. CONCLUSIONS: Essentially normal Holter monitor. READ BY: Kana Reeves M.D. Dictated: 12/06/2022 [id number] Transcribed: 12/06/2022 cc:ANNALEE Weiss [facility] Comment on above: Result Comment: Elec tronically Signed By: Kana Reeves MD\.br\Date and Time Signed: 12/07/22 09:25 EDT Clinical Note 11-02-2022 Note Date & Type Note Facility 11-02-2022 Note Echocardiology Procedure Exam Date/Time Accession # [id number] Echo Transthoracic 11/02/2022 08:58 EDT [id number] Bianca Villalobos NP Complete CPT code 55471 [id number] Reason for Exam (Echo Transthoracic Complete) R07.89;Chest pain Report [facility] [address] [place] [address] Adult Echocardiogram Report Name: CASS RAMON Study Date: 11/02/2022 08:13 AM BP: 123/71 mmHg Patient Location: [facility] HR: 56 : 1965 Gender: Female Height: 69 in Age: 57 yrs Ethnicity: [facility] Weight: 220 lb Reason For Study: Chest pain BSA: 2.2 m2 History: No cardiac history per patient Ordering Physician: Bianca Villalobos Referring Physician: Bianca Villalobos Performed By: Natasha Epstein, [facility] Interpretation Summary No comparison study is available. Ejection Fraction = 60-65%. The left ventricular wall motion is normal. Grade I diastolic dysfunction, (abnormal relaxation pattern). The left atrium is mildly dilated. There is Trace mitral regurgitation. There is mild tricuspid regurgitation. Right ventricular systolic pressure is 21 mmHg. The atrial septum is aneurysmal without evidence of shunting Procedure A complete two-dimensional transthoracic echocardiogram was performed (2D, M-mode, spectral and color flow Doppler). Study quality is good. I WMSI = 1.00 % Normal = 100 Segments Size X - Cannot 2 - 1-2 small Interpret 1 - Normal Hypokinetic 3 - Akinetic 4 - Dyskinetic3-5 moderate 5 - Aneurysmal 6-14 large 15-16 diffuse Left Ventricle Echocardiology Report The left ventricle is normal in size. There is normal left ventricular wall thickness. Ejection Fraction = 60-65%. The left ventricular wall motion is normal. Grade I diastolic dysfunction, (abnormal relaxation pattern). Left Atrium The left atrium is mildly dilated. The atrial septum is aneurysmal without evidence of shunting. Right Atrium Right atrial size is normal. Right Ventricle The right ventricular systolic function is normal. Aortic Valve The aortic valve is trileaflet. Mitral Valve Mitral valve structure is normal. There is Trace mitral regurgitation. Tricuspid Valve Structurally normal tricuspid valve. There is mild tricuspid regurgitation. Right ventricular systolic pressure is 21 mmHg. Pulmonic Valve The pulmonic valve is normal. Arteries The aortic root is normal in size. Venous The inferior vena cava is normal in size, and collapses normally with respiration. MMode/2D Measurements & Calculations RVDd: 2.8 cm LVIDd: 5.6 cm FS: 29.5 % Ao root diam: 2.8 cm IVSd: 0.81 cm LVIDs: 4.0 cm EDV(Teich): 154.3 ml Ao root area: 6.0 cm2 LVPWd: 1.2 cm ESV(Teich): 68.2 ml LA dimension: 4.0 cm EF(Teich): 55.8 % asc Aorta Diam: 3.1 cm LVOT diam: 2.2 cm LVLd ap4: 8.1 cm EDV(MOD-sp2): 101.0 ml LVOT area: 3.7 cm2 EDV(MOD-sp4): 102.0 ml ESV(MOD-sp2): 40.0 ml LVLs ap4: 7.0 cm EF(MOD-sp2): 60.4 % ESV(MOD-sp4): 39.9 ml EF(MOD-sp4): 60.9 % SV(MOD-sp4): 62.1 ml TAPSE: 2.4 cm Ao Sinus of Valsalva: 3.0 cm Ao Sinotubular Junction: 2.7 cm IVC Diam: 1.5 cm RVIDd/LVIDd: 0.51 EF (MOD-bp): 60.6 % LA Vol Index: 26.0 ml/m2 Echocardiology Report Doppler Measurements & Calculations MV E max wai: 64.6 cm/sec MV dec time: 0.19 sec Ao V2 max: 137.9 cm/sec LV V1 max P.6 mmHg MV A max wai: 61.9 cm/sec Ao max P.6 mmHg LV V1 max: 64.0 cm/sec MV E/A: 1.0 YADIRA(V,D): 1.7 cm2 Lat Peak E' Wai: 7.8 cm/sec E/E' Lat: 8.3 Med Peak E' Wai: 7.7 cm/sec E/E' Med: 8.4 TR max wai: 209.9 cm/sec RAP systole: 3.0 mmHg AV VR: 0.46 TR max P.6 mmHg RVSP(TR): 20.6 mmHg FINAL REPORT Dictated: 11/02/2022 8:13 am Darion García MD Signed (Electronic Signature): 11/02/2022 12:52 pm Signed by: Darion García MD Transcribed by: DEBORAH Technologist: BOY [facility] Evaluation + Plan note 09-28-2022 Radiology Note Date & Type Note Facility 09-28-2022 Evaluation + Plan note Future Scheduled TestsEcho Transthoracic Complete 09/28/22 [facility] Evaluation + Plan note 09-15-2022 Laboratory Note Date & Type Note Facility 09-15-2022 Evaluation + Plan note Future Scheduled TestsBasic Metabolic Panel 09/15/22Lipid Panel 09/15/22 [facility] Evaluation + Plan note Radiology Note Date & Type Note Facility Evaluation + Plan note Future Appointments Appointment Date:11/02/2022 08:00:00 AM Scheduled Provider: Location:.[facility] Appointment Type:CV Echo (FT) Future Scheduled TestsEcho Transthoracic Complete 11/02/22 [facility] Hospital course Narrative Note Date & Type Note Facility Hospital course Narrative No data available for this section [facility] Hospital Discharge instructions Note Date & Type Note Facility Hospital Discharge instructions No data available for this section [facility] Progress note Note Date & Type Note Facility Progress note No data available for this section [facility] Summary Purpose Family History No Family History Records FoundNo Family History Records FoundNo Family History Records Found Advance Directives No Advanced Directives Records FoundNo Advanced Directives Records FoundNo Advanced Directives Records Found Additional Source Comments INFORMATION SOURCE (unrecogn ized section and content) DATE CREATED AUTHOR 08/23/2020 [facility] DATE CREATED AUTHOR AUTHOR'S ORGANIZ ATION 10/09/2022 [facility] DATE CREATED AUTHOR AUTHOR'S ORGANIZ ATION 01/25/2023 [facility] Patient Care team informatio n (unrecognized section and content) Personnel Name: Bianca Villalobos NP Address: Address: [address] [place] [address] Personnel Name: Bianca Villalobos NP Address: Address: [address] [place] [address] Personnel Name: Bianca Villalobos NP Address: Address: [address] [place] [address] Personnel Name: Bianca Villalobos NP Address: Address: [address] [place] [address] FOR RECORDS PERTAINING TO PATIENTS WHO ARE OR HAVE BEEN ENROLLED IN A CHEMICAL DEPENDENCY/SUBSTANCEABUSE PROGRAM, SOME INFORMATION MAY BE OMITTED. This clinical summary was aggregated from multiple sources. Caution should be exercised in using it in the provision of clinical care. This summary normalizes information from multiple sources, and as a consequence, information in this document may materially change the coding, format and clinical context of patient data. In addition, data may be omitted in some cases. CLINICAL DECISIONS SHOULD BE BASED ON THE PRIMARY CLINICAL RECORDS. [facility]. provides no warranty or guarantee of the accuracy or completeness of information in this document.
== END 2024-10-22 07:01 | disposition home or self-care (01) ==
LOC: MAMMO 07:01
PROVIDERS: PCP Family Medicine; Visit Provider Nurse Practitioner Women's Health
DX: Z12.31 Encounter for screening mammogram for malignant neoplasm of breast (principal); Z80.1 Family history of malignant neoplasm of trachea, bronchus and lung; Z80.0 Family history of malignant neoplasm of digestive organs
CPT/HCPCS: 77063; 77067